=== PATIENT | male | born 1990 | race Caucasian/White ===

== ENCOUNTER 2016-12-08 17:04 | Emergency (ER) | payer OTHER ==
--- NOTE | 2016-12-08 17:27 | UCPHY ---
H & P Time Seen by Provider: 12/08/16 17:21 Patient Type: Established HPI/ROS: 26-year-old male presents complaining right lateral neck muscle tension after slipping on ice at work today. He denies midline neck pain. He denies numbness or tingling he denies loss of bowel or bladder control. He had a similar injury approximately 1 year ago and feels he has exacerbated this by the fall today. Review of systems General no fever no chills no weakness HEENT no eye pain no eye discharge. No eye redness, no sore throat Respiratory no cough, no shortness of breath Cardiac no chest pain, no peripheral edema GI no abdominal pain, no diarrhea, no constipation, no nausea, no vomiting no flank pain, no hematuria, no dysuria Musculoskeletal positive myalgias, no joint pain Heme no easy bruising, no easy bleeding Endo no polyuria, no polydipsia Skin no rashes, no pruritus Neuro no syncope, no dizziness, no headaches Psych is no suicidal ideation, no homicidal ideation Past Medical/Surgical History: Noncontributory Social History: Occasional alcohol, occasional marijuana Smoking Status: Unknown if ever smoked Physical Exam: 26-year-old male alert and oriented no acute distress nontoxic appearance afebrile HEENT atraumatic normocephalic, extraocular muscles intact, anicteric Oropharynx negative for erythema negative exudate, tolerating her own secretions Neck supple no meningismus, tenderness to palpation left lateral neck along the trapezius and in for scapular No crepitus, no bruising no swelling, no rash Lungs clear to auscultation bilaterally Heart regular rate and rhythm without murmur rub or gallop Abdomen nondistended normoactive bowel sounds soft nontender Back no CVA tenderness, no step-offs, no spinal tenderness Extremities no cyanosis clubbing or edema Neuro alert and oriented, no focal deficits Constitutional: Initial Vital Signs Temperature (C) 36.8 C 12/08/16 17:30 Heart Rate 70 12/08/16 17:30 Respiratory Rate 14 12/08/16 17:30 Blood Pressure 127/75 H 12/08/16 17:30 O2 Sat (%) 95 12/08/16 17:30 O2 Delivery Mode Room Air Allergies/Adverse Reactions: No Known Allergies Allergy (Unverified 12/08/16 17:30) Home Medications: Medication Instructions Recorded Cyclobenzaprine [Flexeril 10 MG 10 mg PO TID PRN #15 tab 12/08/16 (*)] Medical Decision Making ED Course/Re-evaluation: Patient seen and evaluated for left lateral neck and upper back pain following slipping on ice on his way to work. Impression Left trapezius strain Left lateral neck muscle spasm Plan Ice, muscle relaxant p.r.n., acetaminophen or ibuprofen as needed for pain Follow-up primary care physician - Data Points Medications Given: Discontinued Medications Cyclobenzaprine HCl (Flexeril 10 Mg Prepack#3) 1 btl TAKEHOME EDNOW ONE Stop: 12/08/16 17:38 Last Admin: 12/08/16 17:40 Dose: 1 btl Departure - Departure Disposition: Home, Routine, Self-Care Clinical Impression: Strain of neck muscle, Trapezius muscle spasm Condition: Good Instructions: Cervical Strain (ED), Muscle Spasm (ED) Referrals: NONE *PRIMARY CARE P,. [Primary Care Provider] - As per Instructions [facility] [Provider Group] - As per Instructions Prescriptions: Cyclobenzaprine [Flexeril 10 MG (*)] 10 mg PO TID PRN #15 tab PRN Reason: Spasms - PQRS PQRS Measurement: na
[2016-12-08 17:33] VITALS: BP 127/75; PULSE 70; RESP 14; TEMP 98.2; O2SAT 95
[2016-12-08] MEDS ORDERED: CYCLOBENZAPRINE 10MG PREPACK#3 BTL TAKEHOME ONE (17:37)
== END 2016-12-08 17:51 | disposition home or self-care (01) ==
LOC: CED 17:04
DX: S16.1XXA Strain of muscle, fascia and tendon at neck level, initial encounter (principal); M62.838 Other muscle spasm; F12.90 Cannabis use, unspecified, uncomplicated
CPT/HCPCS: 99214-PO; G0463-PO